=== PATIENT | male | born 1975 | race Caucasian/White ===

== ENCOUNTER 2018-04-08 07:22 | Emergency (ER) | payer MEDICAID ==
[~2018-04-08] VITALS: Ht 182.9 cm; Wt 96.2 kg
[2018-04-08] MEDS ORDERED: CefTRIAXone 2gm/D5W 50ml 50 ML IV ONE (07:45)
--- NOTE | 2018-04-08 07:46 | NUR ---
Patient assisted to room via w/c. Patient on rn cardiac cath, changed into gown. Dr. Christie at bedside. xray at bedside.
[2018-04-08 08:20] LABS: BASOPHILS % (AUTO) 0.1 % (0-1); EOSINOPHILS # (AUTO) 0.3 X10'3 (0-0.9); EOSINOPHILS % (AUTO) 2.9 % (0-6); HEMATOCRIT 36.9 % (42.0-52.0); HEMOGLOBIN 12.3 g/dl (14.0-17.9); LYMPHOCYTES # (AUTO) 1.3 X10'3 (1.1-4.8); LYMPHOCYTES % (AUTO) 14.4 % (21-51); MEAN CORPUSCULAR HEMOGLOBIN 28.3 PG (27.0-31.0); MEAN CORPUSCULAR HGB CONC 33.4 g/dL (33.0-36.5); MEAN CORPUSCULAR VOLUME 84.9 FL (78-98); MEAN PLATELET VOLUME 7.5 FL (7.4-10.4); MONOCYTES # (AUTO) 0.6 X10'3 (0-0.9); MONOCYTES % (AUTO) 6.9 % (2-12); NEUTROPHILS # (AUTO) 6.9 X10'3 (1.8-7.7); NEUTROPHILS % (AUTO) 75.7 % (42-75); PLATELET COUNT 214 X10'3 (140-440); RED BLOOD COUNT 4.34 X10'6 (4.70-6.10); RED CELL DISTRIBUTION WIDTH 13.9 % (11.5-14.5); WHITE BLOOD COUNT 9.1 X10'3 (4.5-11.0)
[2018-04-08 08:30] LABS: ALANINE AMINOTRANSFERASE 44 U/L (12-78); ALBUMIN 3.5 G/DL (3.4-5.0); ALBUMIN/GLOBULIN RATIO 0.8 (1.1-1.5); ALKALINE PHOSPHATASE 105 IU/L (46-116); ANION GAP 9 (8-16); ASPARTATE AMINO TRANSFERASE 39 U/L (10-37); BLOOD UREA NITROGEN 19 MG/DL (7-18); BUN/CREATININE RATIO 22.4 (5.4-32.0); CALCIUM 8.9 MG/DL (8.5-10.1); CHLORIDE 102 MMOL/L (99-107); CREATININE 0.85 MG/DL (0.60-1.10); GLUCOSE 79 MG/DL (70-104); INR 1.1 INR; PARTIAL THROMBOPLASTIN TIME 27 SECONDS (22-32); POTASSIUM 3.2 MMOL/L (3.5-5.1); PROTHROMBIN TIME 11.2 SECONDS (9.0-12.0); SODIUM 142 MMOL/L (135-145); TOTAL CARBON DIOXIDE 31.3 MMOL/L (24-32); TOTAL PROTEIN 8.1 G/DL (6.4-8.2); eGFR > 90 ML/MIN
[2018-04-08] MEDS ORDERED: iohexol 350MG/ML 100ml bottle IV ONE (08:58)
--- NOTE | 2018-04-08 09:06 | NUR ---
vascular at bedside.
--- NOTE | 2018-04-08 10:31 | NUR ---
Patient to CT
[2018-04-08] MEDS ORDERED: CEPH500C5 PO (11:06)
[2018-04-08] MEDS ORDERED: RIVA15TA PO (11:06)
[2018-04-08 11:17] VITALS: BP 126/58
== END 2018-04-08 11:19 | disposition home or self-care (01) ==
LOC: ER 07:22
DX: I82.532 Chronic embolism and thrombosis of left popliteal vein (principal); L03.116 Cellulitis of left lower limb
CPT/HCPCS: 36415; 71045; 71275; 80053; 83605; 84145; 85025; 85610; 85730; 87040; 93005; 93971; 96365; 99284; J0696; Q9967

== ENCOUNTER 2018-09-29 01:48 | Emergency (ER) | payer MEDICAID ==
[~2018-09-29] VITALS: Ht 182.9 cm; Wt 95.5 kg
[~2018-09-29 01:48] MED LIST: RIVA15TA PO
[2018-09-29] MEDS ORDERED: LISI-600 PO (02:07)
--- NOTE | 2018-09-29 02:26 | NUR ---
ASKED HIM IF HE USED ANY DRUGS AND HE DENIED, WHEN I WENT TO ACCESS FOR IV I FELT LUMPS ALL OVER HIS VEINS AND LINES. I ASKED HIM WHAT THESE LINES WERE FROM, HE SAID 'I DID DRUGS' WHEN ASKED WHEN HE SAID 'A LONG TIME AGO' WHEN ASKED AGAIN, HE SAID HE TRIED JUST TODAY. HE DRIFTS OFF TO SLEEP EASILY AND HAS SLOW SPEECH. HE SAID 'THAT IS NOT FROM DRUGS, I SWEAR, THIS IS HOW I WAS 2 YEARS AGO WHEN I HAD A BLOOD CLOT.'
[2018-09-29 02:33] LABS: BASOPHILS # (AUTO) 0.1 X10'3 (0-0.2); BASOPHILS % (AUTO) 0.7 % (0-1); EOSINOPHILS # (AUTO) 0.4 X10'3 (0-0.9); EOSINOPHILS % (AUTO) 4.7 % (0-6); HEMATOCRIT 36.8 % (42.0-52.0); HEMOGLOBIN 12.4 g/dl (14.0-17.9); LYMPHOCYTES # (AUTO) 2.4 X10'3 (1.1-4.8); LYMPHOCYTES % (AUTO) 29.9 % (21-51); MEAN CORPUSCULAR HEMOGLOBIN 27.6 PG (27.0-31.0); MEAN CORPUSCULAR HGB CONC 33.6 g/dL (33.0-36.5); MEAN CORPUSCULAR VOLUME 82.1 FL (78-98); MEAN PLATELET VOLUME 7.1 FL (7.4-10.4); MONOCYTES # (AUTO) 0.7 X10'3 (0-0.9); MONOCYTES % (AUTO) 9.2 % (2-12); NEUTROPHILS # (AUTO) 4.4 X10'3 (1.8-7.7); NEUTROPHILS % (AUTO) 55.5 % (42-75); PLATELET COUNT 304 X10'3 (140-440); RED BLOOD COUNT 4.49 X10'6 (4.70-6.10); RED CELL DISTRIBUTION WIDTH 14.3 % (11.5-14.5); WHITE BLOOD COUNT 7.9 X10'3 (4.5-11.0)
[2018-09-29 02:46] LABS: ALANINE AMINOTRANSFERASE 45 U/L (12-78); ALBUMIN 3.5 G/DL (3.4-5.0); ALBUMIN/GLOBULIN RATIO 0.8 (1.1-1.5); ALKALINE PHOSPHATASE 126 IU/L (46-116); ANION GAP 8 (8-16); ASPARTATE AMINO TRANSFERASE 76 U/L (10-37); BILIRUBIN,TOTAL 0.9 MG/DL (0.1-1.0); BLOOD UREA NITROGEN 29 MG/DL (7-18); BUN/CREATININE RATIO 18.7 (5.4-32.0); CHLORIDE 97 MMOL/L (99-107); CREATININE 1.55 MG/DL (0.60-1.10); GLUCOSE 121 MG/DL (70-104); POTASSIUM 3.8 MMOL/L (3.5-5.1); SODIUM 136 MMOL/L (135-145); TOTAL CARBON DIOXIDE 30.9 MMOL/L (24-32); TOTAL PROTEIN 7.9 G/DL (6.4-8.2); eGFR 49 ML/MIN
[2018-09-29 02:49] LABS: D-DIMER 1.02 MG/L FEU (0-0.50); PARTIAL THROMBOPLASTIN TIME 35 SECONDS (22-32)
[2018-09-29] MEDS ORDERED: iohexol 350MG/ML 100ml bottle IV ONE (03:07)
[2018-09-29] MEDS ORDERED: normal saline 1000ML IV soln IVB ONE (04:20)
--- NOTE | 2018-09-29 04:52 | NUR ---
BP RECHECKED WITH LONG ADULT CUFF TO UPPER RIGHT ARM AND IT IS STILL LOW, 1.5 L OF NS INFUSED. MD MADE AWARE. DUE TO PATIENTS SLEEPINESS STATE, NARCAN WILL BE ORDERED.
[2018-09-29] MEDS ORDERED: naloxone 0.4 mg/ml inj IV ONE ×2 (04:55→05:05)
[2018-09-29 05:03] VITALS: BP 113/71
--- NOTE | 2018-09-29 05:08 | NUR ---
AFTER THE NARCAN HE STARTED TO HAVE MUSCLE TWITCHES, HIS PUPILS WENT FROM PIN POINT TO 4MM AND HIS BP ELEVATED AND HE BECAME VERY AWAKE AND EXCITABLE. THE INITAL NARCAN THAT WAS ORDERED HAD BEEN ADM AND THE MD STATED HE WANTED THE PT TO HAVE THE ADDITIONAL NARCAN, HOWEVER, THE PT STATED "NO MORE NARCAN!" HE THEN PROCEEDED TO SIT UP QUICKLY IN BED AND PULL HIS BP CUFF OFF AND I CALMLY TOLD HIM IT WAS OK, HE COULD GO, BUT THAT IT WAS ALRIGHT. HE CALMED AND LET ME REMOVE HIS IV. I EXPLAINED TO HIM THAT I GAVE HIM 2 LITERS OF NS BECAUSE HIS KIDNEYS NEEDED IT AND THAT HE GOT THE NARCAN BECAUSE HIS BP WAS SO LOW AND HIS RESPIRATIONS WERE SHALLOW. I INSTRUCTED HIM TO DRINK ALOT OF FLUIDS TODAY AND HE HAD GOOD EYE CONTACT WITH ME AND SHOOK HIS HEAD YES. HE DEPARTED THE ED.
== END 2018-09-29 05:14 | disposition left against medical advice (07) ==
LOC: ER 01:48
DX: R06.02 Shortness of breath (principal); F11.90 Opioid use, unspecified, uncomplicated; N17.9 Acute kidney failure, unspecified; I10 Essential (primary) hypertension; Z86.711 Personal history of pulmonary embolism; Z86.718 Personal history of other venous thrombosis and embolism; Z86.73 Personal history of transient ischemic attack (TIA), and cerebral infarction without residual deficits; Z79.899 Other long term (current) drug therapy
CPT/HCPCS: 36415; 71045; 71275; 80053; 83880; 84484; 85025; 85379; 85610; 85730; 93005; 96374; 99284; J2310; Q9967